=== PATIENT | female | born 1940 | race Caucasian/White ===

== ENCOUNTER 2018-04-15 17:49 | Emergency (ER) | payer MEDICARE, BC, OTHER ==
[2018-04-15] MEDS ORDERED: CEFTRIAXONE SODIUM 1 GM in 0.9 % SODIUM CHLORIDE 100ML 100 ML IVPB ONE (18:09)
[2018-04-15] MEDS ORDERED: METRONIDAZOLE 250 MG TABLET PO ONE (18:10)
--- NOTE | 2018-04-15 18:16 | Emergency Department Record ---
History of Present Illness - General Chief complaint: Extremity Problem Stated complaint: RT INDEX INFECTION Time Seen by Provider: 04/15/18 17:59 Source: Patient Mode of Arrival: Ambulatory Limitations: No limitations - History of Present Illness Initial comments: The patient is here due to a R 2nd finger infection. She was bit by her house cat about 24 hours ago over the R 2nd finger at the DIP flexor crease. Now she is having increased pain and swelling to the finger. She denies any hand pain or fever. MD Complaint: Extremity pain Onset/Timin -: Hour(s) Location: Right, Hand Severity scale (1-10): 5 Quality: Aching Consistency: Constant Improves with: Nothing Worsens with: Nothing Associated Symptoms: Denies other symptoms - Related Data Home Medications Medication Instructions Recorded Confirmed Last Taken Lorazepam [Ativan] 0.5 mg PO ASDIR 04/15/18 04/15/18 Unknown Allergies Allergy/AdvReac Type Severity Reaction Status Date / Time No Known Allergies Allergy Unknown no Unverified 04/15/18 17:58 allergies Travel Screening - Travel/Exposure Within Last 30 Days Have you traveled within the last 30 days?: No Review of Systems Constitutional: Denies: Chills, Fever Eyes: Denies: Eye discharge ENT: Denies: Congestion Respiratory: Denies: Cough Past Medical History - SOCIAL HISTORY Smoking Status: Never smoker Alcohol Use: None Drug Use: None - RESPIRATORY Hx Respiratory Disorders: No - CARDIOVASCULAR Hx Cardio Disorders: No - NEURO Hx Neuro Disorders: No - GI Hx GI Disorders: Yes Hx Reflux: Yes - Hx Genitourinary Disorders: No - ENDOCRINE Hx Endocrine Disorders: Yes Hx Thyroid Disease: Yes - MUSCULOSKELETAL Hx Musculoskeletal Disorders: No - PSYCH Hx Psych Problems: Yes Hx Anxiety: Yes - HEMATOLOGY/ONCOLOGY Hx Hematology/Oncology Disorders: No Family Medical History Any Significant Family History?: No Physical Exam - General General Appearance: Alert, Cooperative, No acute distress - Head Head exam: Atraumatic, Normocephalic - Eye Eye exam: Normal appearance, PERRL - Extremities Extremities exam: Full ROM (The patient has good ROM of the 2nd finger with no pain on passive extension. There are no signs of flexor tenosynovitis.), Tenderness (There is tenderness to the palmar surface of the R 2nd finger from the PIP joint distally to the finger pad.). negative: Normal inspection (There is mild swelling and erythema to the R 2nd finger from the PIP joint palmar surface distally. There is a superficial PW at the flexor DIP crease that a minimal amound of clear discharge is able to be expressed. ) Image of Hand: 1 - Area of erythema, edema and tenderness. Course Vital Signs 04/15/18 17:53 Temperature 98.0 F Pulse Rate 92 H Respiratory 20 Rate Blood Pressure 148/77 Pulse Ox 97 - Reevaluation(s) Reevaluation #1: The patient is doing very well at this time. She is to soak the finger at home and return to the ER at 8am for recheck and repeat IV Abx's. 04/15/18 19:00 Disposition Disposition: Discharge Clinical Impression: Cat bite Qualifiers: Encounter type: initial encounter Qualified Code(s): W55.01XA - Bitten by cat, initial encounter Disposition: Home, Self-Care Condition: (2) Stable Instructions: Animal Bite (ED) Additional Instructions: The patient is instructed to contact animal control to quarantine her cat. Please soak the finger in warm water every hour for 20 minutes. Please return to the ER at 8am for recheck and repeat antibiotics. Forms: Patient Portal Access Time of Disposition: 18:59 Quality - Quality Measures Quality Measures: N/A - Blood Pressure Screening View Details: Yes Does Patient Have Any of the Following: No Blood Pressure Classification: Hypertensive Reading Systolic Measurement: 148 Diastolic Measurement: 77 Screening for High Blood Pressure: < First Hypertensive BP, F/U Documented > [ G8950] First Hypertensive Follow-up Interventions: Referral to alternative/primary care provider.
[2018-04-15] MEDS ORDERED: Diph,Pert(Acell),Tet Vac 0.5 ML SYR IM ONE (18:20)
== END 2018-04-15 19:10 | disposition home or self-care (01) ==
LOC: ER 17:49
DX: S60.470A Other superficial bite of right index finger, initial encounter (principal); L08.9 Local infection of the skin and subcutaneous tissue, unspecified; W55.01XA Bitten by cat, initial encounter
CPT/HCPCS: 90715; 96365; 96372; 99284

== ENCOUNTER 2018-04-16 07:51 | Emergency (ER) | payer MEDICARE, BC, OTHER ==
[2018-04-16] MEDS ORDERED: CEFTRIAXONE SODIUM 1 GM in 0.9 % SODIUM CHLORIDE 100ML 100 ML IVPB ONE (07:55)
--- NOTE | 2018-04-16 08:04 | Emergency Department Record ---
History of Present Illness - General Stated Complaint: IV ANTIOBIOTICS Time Seen by Provider: 04/16/18 07:52 Source: Patient Mode of arrival: Ambulatory Limitations: No limitations - History of Present Illness Initial Comments: 77 yo female presents for a recheck of her right index finger infection from a cat bite. She was seen in the ED yesterday and provided Rocephin and flagyl. She reports significant improvement. She has decreased pain, redness, and swelling. NO fever. Her ROM is improving. No streaking of redness. The area involved has decreased. MD Complaint: Needs IV antibiotics, Wound re-check -: Days(s) (2) Initial Visit For: Animal bite Returns Today for: Needs IV antibiotics Symptoms Since Prior Visit: No new symptoms, Improved Associated Symptoms: None - Related Data Previous Rx's Medication Instructions Recorded Amoxicillin/Potassium Clav 1 each PO BID #14 tablet 04/16/18 [Augmentin 875Mg/125Mg] Allergies Allergy/AdvReac Type Severity Reaction Status Date / Time No Known Allergies Allergy Unknown no Verified 04/16/18 08:00 allergies Review of Systems Constitutional: Denies: Chills, Fever Eyes: Denies: Vision change ENT: Denies: Congestion Respiratory: Denies: Cough Cardiovascular: Denies: Chest pain Endocrine: Denies: Fatigue Gastrointestinal: Denies: Abdominal pain, Diarrhea, Nausea, Vomiting Genitourinary: Denies: Dysuria Musculoskeletal: Reports: As per HPI, Arthralgia Skin: Reports: As per HPI, Change in color. Denies: Bruising Neurological: Denies: Numbness, Tingling Psychiatric: Denies: Anxiety Hematological/Lymphatic: Denies: Easy bleeding, Easy bruising, Swollen glands Past Medical History - SOCIAL HISTORY Smoking Status: Never smoker Drug Use: None - RESPIRATORY Hx Respiratory Disorders: No - CARDIOVASCULAR Hx Cardio Disorders: No - NEURO Hx Neuro Disorders: No - GI Hx GI Disorders: Yes Hx Reflux: Yes - Hx Genitourinary Disorders: No - ENDOCRINE Hx Endocrine Disorders: Yes Hx Thyroid Disease: Yes - MUSCULOSKELETAL Hx Musculoskeletal Disorders: No - PSYCH Hx Psych Problems: Yes Hx Anxiety: Yes - HEMATOLOGY/ONCOLOGY Hx Hematology/Oncology Disorders: No Physical Exam - General General Appearance: Alert, Oriented x3, Cooperative, No acute distress Limitations: No limitations - Head Head exam: Atraumatic, Normal inspection - Eye Eye exam: Normal appearance - ENT ENT exam: Normal exam - Neck Neck exam: Normal inspection - Cardiovascular Cardiovascular Exam: Regular rate, Normal rhythm, Normal heart sounds Peripheral Pulses: 2+: Radial (R) - Extremities Extremities exam: Full ROM, Joint swelling, Normal capillary refill, Tenderness. negative: Normal inspection Image of Hand: 1 - mild swelling, mild erythema, non tender, no streaking, passive and active ROM are near complete without significant pain or limitation, the area is very soft, no signs of abscess, pus, or deep space infection - Neurological Neurological exam: Alert, Oriented X3 - Psychiatric Psychiatric exam: Normal affect, Normal mood. negative: Agitated, Anxious - Skin Skin exam: Erythema Course - Reevaluation(s) Reevaluation #1: EMR reviewed from yesterday and the antibiotics provided She is improved significantly per the patient 04/16/18 08:00 Disposition Disposition: Discharge Clinical Impression: Cat bite Disposition: Home, Self-Care Condition: (1) Good Instructions: Animal Bite (ED) Additional Instructions: Continue to soak the finger 3 times daily Return in 24 hours if not improving or sooner if worse, swelling, streaking, fever, or pain Take the Augmentin twice daily for one week Call your doctor for a recheck to ensure the complete healing of the finger Prescriptions: Amoxicillin/Potassium Clav [Augmentin 875Mg/125Mg] 1 each PO BID #14 tablet Time of Disposition: 08:07 Quality - Quality Measures Quality Measures: N/A - Blood Pressure Screening Does Patient Have Any of the Following: No Blood Pressure Classification: Normal BP Reading Systolic Measurement: 119 Diastolic Measurement: 74 Screening for High Blood Pressure: < Normal BP, F/U Not Required > [G8783]
== END 2018-04-16 08:42 | disposition home or self-care (01) ==
LOC: ER 07:51
DX: S60.470A Other superficial bite of right index finger, initial encounter (principal); L08.9 Local infection of the skin and subcutaneous tissue, unspecified; W55.01XA Bitten by cat, initial encounter
CPT/HCPCS: 96365; 99282